=== PATIENT | male | born 1980 | race Caucasian/White ===

== ENCOUNTER 2024-04-21 16:02 | Emergency (ER) | payer BC ==
[~2024-04-21] VITALS: Ht 180.3 cm; Wt 83.9 kg
[2024-04-21 16:16] VITALS: O2SAT 99
== END 2024-04-21 17:22 | disposition home or self-care (01) ==
LOC: ER 16:03
DX: K05.30 Chronic periodontitis, unspecified (principal); L98.9 Disorder of the skin and subcutaneous tissue, unspecified
CPT/HCPCS: A4606; A4663